=== PATIENT | male | born 1980 | race Caucasian/White ===

== ENCOUNTER 2021-09-26 08:06 | Emergency (ER) | payer SELFPAY ==
[~2021-09-26] VITALS: Ht 172.7 cm; Wt 68.0 kg
[2021-09-26 08:11] VITALS: BP 88/71
[2021-09-26 08:12] VITALS: BP 135/78
[2021-09-26 08:30] VITALS: BP 119/73
[2021-09-26 09:00] VITALS: BP 113/73
[2021-09-26 09:30] VITALS: BP 116/74
[2021-09-26 09:54] VITALS: BP 116/74
== END 2021-09-26 09:56 | disposition home or self-care (01) | DRG 556 ==
LOC: ED 08:06
DX: M25.512 Pain in left shoulder (principal)

== ENCOUNTER 2021-09-26 18:41 | Emergency (ER) | payer SELFPAY ==
[2021-09-26] VITALS (8 sets, daily range): BP systolic 110–124; BP diastolic 67–80
[~2021-09-26] VITALS: Ht 172.7 cm; Wt 75.0 kg
[2021-09-26 20:19] LABS: HEMATOCRIT 33.7 % (39.0-50.0); HEMOGLOBIN 11.3 g/dl (14.0-18.0); IMMATURE GRANULOCYTES 0.7 % (0.0-5.0); MEAN CELL VOLUME 94.7 fL CALC (80.0-100.0); MEAN CORPUSCULAR HGB 31.7 pG CALC (26.0-32.0); MEAN CORPUSCULAR HGB CONC 33.5 g/dL CAL (32.0-36.0); NEUT# 1.41 thou/uL (1.82-7.42); RED BLOOD COUNT 3.56 mill/uL (4.70-6.10)
[2021-09-26 20:46] LABS: MYOGLOBIN 33 ng/mL (0 - 121)
[2021-09-26 20:55] LABS: ALBUMIN 3.1 g/dL (3.2-5.0); ALKALINE PHOSPHATASE 62 u/l (38-126); ANION GAP 12 (6-22 (CALC)); BILIRUBIN, TOTAL 0.1 mg/dL (0.0-1.4); BUN 8 mg/dL (9-20); BUN/CREATININE RATIO 12 (12-20 (CALC)); CARBON DIOXIDE 27 mmol/l (22-30); CHLORIDE 105 mmol/l (95-108); CREATININE 0.7 mg/dL (0.7-1.3); GFR > 60 ML/MIN (>=60 (CALC)); GFR FOR AFR.AMER. > 60 ML/MIN (>=60 (CALC)); POTASSIUM 2.8 mmol/l (3.5-5.1); SGOT/AST 32 u/l (17-59); SODIUM 141 mmol/l (137-146); TOTAL PROTEIN 6.3 g/dL (6.3-8.2)
[2021-09-27] VITALS (18 sets, daily range): BP systolic 111–132; BP diastolic 70–86
[2021-09-27 00:25] LABS: URINE BILIRUBIN - DIPSTICK NEGATIVE (NEGATIVE); URINE BLOOD DIPSTICK NEGATIVE (NEGATIVE); URINE COLOR YELLOW; URINE GLUCOSE - DIPSTICK NEGATIVE (NEGATIVE); URINE KETONE NEGATIVE (NEGATIVE); URINE LEUK ESTERASE NEGATIVE (NEGATIVE); URINE PH 6.5 (4.5-8.0); URINE PROTEIN - DIPSTICK NEGATIVE (NEG-TRACE); URINE UROBILINOGEN - DIPSTICK 0.2 E.U./dL (0.2)
[2021-09-27 00:26] LABS: URINE NITRITE - DIPSTICK NEGATIVE (Negative)
[2021-09-27 01:45] LABS: MAGNESIUM 1.1 mg/dL (1.6-2.3)
[2021-09-27 01:50] LABS: POTASSIUM 4.1 mmol/l (3.5-5.1)
== END 2021-09-27 06:35 | disposition home or self-care (01) | DRG 641 ==
LOC: ED 18:41
PROVIDERS: Emergency Medicine
DX: E87.6 Hypokalemia (principal); E83.42 Hypomagnesemia; F17.200 Nicotine dependence, unspecified, uncomplicated; Z21 Asymptomatic human immunodeficiency virus [HIV] infection status; M25.512 Pain in left shoulder
CPT/HCPCS: J3475

== ENCOUNTER 2021-10-02 16:22 | Observation (INO) | payer SELFPAY ==
[~2021-10-02] VITALS: Ht 172.7 cm; Wt 59.0 kg
[2021-10-02] VITALS (18 sets, daily range): BP systolic 96–126; BP diastolic 60–86
[2021-10-02 16:57] LABS: HEMATOCRIT 33.1 % (39.0-50.0); HEMOGLOBIN 11.1 g/dl (14.0-18.0); MEAN CORPUSCULAR HGB 31.5 pG CALC (26.0-32.0); MEAN CORPUSCULAR HGB CONC 33.5 g/dL CAL (32.0-36.0); NEUT# 2.4 thou/uL (1.82-7.42); RED BLOOD COUNT 3.52 mill/uL (4.70-6.10); RED CELL DISTRI WIDTH 13.6 % (11.5-15.5)
[2021-10-02 17:18] LABS: ALKALINE PHOSPHATASE 69 u/l (38-126); BUN 14 mg/dL (9-20); BUN/CREATININE RATIO 16 (12-20 (CALC)); CARBON DIOXIDE 27 mmol/l (22-30); CHLORIDE 101 mmol/l (95-108); CREATININE 0.9 mg/dL (0.7-1.3); ETHYL ALCOHOL 0 mg/dl (0-30); GFR > 60 ML/MIN (>=60 (CALC)); GFR FOR AFR.AMER. > 60 ML/MIN (>=60 (CALC)); LIPASE 36 u/l (23-300); SODIUM 138 mmol/l (137-146)
[2021-10-02 17:19] LABS: ALBUMIN 4.1 g/dL (3.2-5.0); ANION GAP 13 (6-22 (CALC)); BILIRUBIN, TOTAL 0.6 mg/dL (0.0-1.4); POTASSIUM 2.5 mmol/l (3.5-5.1); SGOT/AST 59 u/l (17-59)
[2021-10-02 20:19] LABS: URINE BLOOD DIPSTICK NEGATIVE (NEGATIVE); URINE COLOR YELLOW; URINE GLUCOSE - DIPSTICK NEGATIVE (NEGATIVE); URINE KETONE TRACE mg/dL (NEGATIVE); URINE LEUK ESTERASE NEGATIVE (NEGATIVE); URINE PH 5.5 (4.5-8.0); URINE PROTEIN - DIPSTICK 30 mg/dL (NEG-TRACE); URINE SPECIFIC GRAVITY >=1.030
[2021-10-02 20:20] LABS: URINE BILIRUBIN - DIPSTICK SMALL (NEGATIVE); URINE NITRITE - DIPSTICK NEGATIVE (Negative)
[2021-10-02 20:31] LABS: URINE BACTERIA FEW hpf; URINE SQUAMOUS EPITHELIAL CELL FEW EPI/hpf (0-FEW)
[2021-10-03] VITALS: BP 123/51
[2021-10-03 04:35] VITALS: BP 127/66
[2021-10-03 05:37] LABS: BUN 14 mg/dL (9-20); BUN/CREATININE RATIO 20 (12-20 (CALC)); CARBON DIOXIDE 29 mmol/l (22-30); CHLORIDE 106 mmol/l (95-108); CREATININE 0.7 mg/dL (0.7-1.3); GFR > 60 ML/MIN (>=60 (CALC)); GFR FOR AFR.AMER. > 60 ML/MIN (>=60 (CALC)); SODIUM 139 mmol/l (137-146)
[2021-10-03 05:39] LABS: ANION GAP 8 (6-22 (CALC)); MAGNESIUM 1.6 mg/dL (1.6-2.3); POTASSIUM 3.6 mmol/l (3.5-5.1)
[2021-10-03 07:34] VITALS: BP 127/66
== END 2021-10-03 12:02 | disposition home or self-care (01) | DRG 641 ==
LOC: ED 16:22 → ED-I 16:42 → ED 16:42 → ED-I 18:17 → ED 18:20 → MS2 18:29 → ED 18:29 → MS2 18:35
PROVIDERS: Family Medicine; ADMIT Internal Medicine; ATTEND Internal Medicine
DX: E87.6 Hypokalemia (principal); F19.20 Other psychoactive substance dependence, uncomplicated; E83.42 Hypomagnesemia; R53.1 Weakness; Z21 Asymptomatic human immunodeficiency virus [HIV] infection status; Z59.00 Homelessness unspecified; Z20.822 Contact with and (suspected) exposure to COVID-19
CPT/HCPCS: G0378; J3475

== ENCOUNTER 2021-10-03 13:29 | Emergency (ER) | payer SELFPAY ==
[~2021-10-03] VITALS: Ht 172.7 cm; Wt 68.0 kg
[2021-10-03 13:42] VITALS: BP 108/73
[2021-10-03 14:30] LABS: HEMATOCRIT 31.9 % (39.0-50.0); HEMOGLOBIN 10.6 g/dl (14.0-18.0); IMMATURE GRANULOCYTES 0.2 % (0.0-5.0); MEAN CELL VOLUME 95.5 fL CALC (80.0-100.0); MEAN CORPUSCULAR HGB 31.7 pG CALC (26.0-32.0); MEAN CORPUSCULAR HGB CONC 33.2 g/dL CAL (32.0-36.0); NEUT# 2.51 thou/uL (1.82-7.42); RED BLOOD COUNT 3.34 mill/uL (4.70-6.10); RED CELL DISTRI WIDTH 13.8 % (11.5-15.5)
[2021-10-03 14:38] LABS: ALKALINE PHOSPHATASE 53 u/l (38-126); ANION GAP 7 (6-22 (CALC)); BUN 15 mg/dL (9-20); BUN/CREATININE RATIO 19 (12-20 (CALC)); CARBON DIOXIDE 30 mmol/l (22-30); CHLORIDE 104 mmol/l (95-108); CREATININE 0.8 mg/dL (0.7-1.3); ETHYL ALCOHOL 0 mg/dl (0-30); GFR > 60 ML/MIN (>=60 (CALC)); GFR FOR AFR.AMER. > 60 ML/MIN (>=60 (CALC)); POTASSIUM 3.6 mmol/l (3.5-5.1); SGOT/AST 40 u/l (17-59); SODIUM 138 mmol/l (137-146); TOTAL PROTEIN 6.5 g/dL (6.3-8.2)
[2021-10-03 14:39] LABS: ALBUMIN 3.1 g/dL (3.2-5.0); BILIRUBIN, TOTAL 0.3 mg/dL (0.0-1.4)
[2021-10-03 15:01] VITALS: BP 111/75
[2021-10-03 15:17] VITALS: BP 111/75
== END 2021-10-03 15:24 | disposition home or self-care (01) | DRG 101 ==
LOC: ED 13:29
PROVIDERS: Family Medicine
DX: R56.9 Unspecified convulsions (principal); Z21 Asymptomatic human immunodeficiency virus [HIV] infection status

== ENCOUNTER 2021-10-15 13:19 | Emergency (ER) | payer SELFPAY ==
[~2021-10-15] VITALS: Ht 172.7 cm; Wt 63.0 kg
[2021-10-15 13:27] VITALS: BP 121/81
[2021-10-15 13:30] VITALS: BP 118/83
[2021-10-15] MEDS ORDERED: KEFLEX500 MG PO (13:46)
[2021-10-15 13:54] VITALS: BP 121/81
[2021-10-15] MEDS ORDERED: NAPROXEN500 MG PO (16:22)
== END 2021-10-15 14:16 | disposition home or self-care (01) | DRG 605 ==
LOC: ED 13:19
DX: S51.802A Unspecified open wound of left forearm, initial encounter (principal); S51.801A Unspecified open wound of right forearm, initial encounter; L98.9 Disorder of the skin and subcutaneous tissue, unspecified; Z21 Asymptomatic human immunodeficiency virus [HIV] infection status; Z72.0 Tobacco use

== ENCOUNTER 2021-10-15 14:32 | Emergency (ER) | payer SELFPAY ==
[~2021-10-15] VITALS: Ht 172.7 cm; Wt 65.0 kg
[~2021-10-15 14:32] MED LIST: KEFLEX500 MG PO
[2021-10-15] MEDS ORDERED: NAPROXEN500 MG PO (16:22)
[2021-10-15 16:27] VITALS: BP 134/92
== END 2021-10-15 16:34 | disposition home or self-care (01) | DRG 605 ==
LOC: ED 14:32
DX: S51.802A Unspecified open wound of left forearm, initial encounter (principal); S51.801A Unspecified open wound of right forearm, initial encounter

== ENCOUNTER 2021-10-15 19:05 | Emergency (ER) | payer SELFPAY ==
[2021-10-15] VITALS (8 sets, daily range): BP systolic 118–139; BP diastolic 73–96
[~2021-10-15] VITALS: Ht 172.7 cm; Wt 63.6 kg
[~2021-10-15 19:05] MED LIST changes: +NAPROXEN500 MG PO
[2021-10-15 19:49] LABS: HEMATOCRIT 36.1 % (39.0-50.0); HEMOGLOBIN 11.9 g/dl (14.0-18.0); IMMATURE GRANULOCYTES 0.2 % (0.0-5.0); MEAN CELL VOLUME 95.3 fL CALC (80.0-100.0); MEAN CORPUSCULAR HGB 31.4 pG CALC (26.0-32.0); NEUT# 2.63 thou/uL (1.82-7.42); RED BLOOD COUNT 3.79 mill/uL (4.70-6.10); RED CELL DISTRI WIDTH 13.2 % (11.5-15.5)
[2021-10-15 19:58] LABS: ALBUMIN 3.3 g/dL (3.2-5.0); ALKALINE PHOSPHATASE 68 u/l (38-126); ANION GAP 10 (6-22 (CALC)); BILIRUBIN, TOTAL 0.2 mg/dL (0.0-1.4); BUN 9 mg/dL (9-20); BUN/CREATININE RATIO 15 (12-20 (CALC)); CARBON DIOXIDE 29 mmol/l (22-30); CHLORIDE 103 mmol/l (95-108); CREATININE 0.6 mg/dL (0.7-1.3); ETHYL ALCOHOL 0 mg/dl (0-30); GFR > 60 ML/MIN (>=60 (CALC)); GFR FOR AFR.AMER. > 60 ML/MIN (>=60 (CALC)); MAGNESIUM 1.5 mg/dL (1.6-2.3); POTASSIUM 3.7 mmol/l (3.5-5.1); SGOT/AST 33 u/l (17-59); SODIUM 138 mmol/l (137-146); TOTAL PROTEIN 6.9 g/dL (6.3-8.2)
[2021-10-15 21:06] LABS: URINE BILIRUBIN - DIPSTICK NEGATIVE (NEGATIVE); URINE BLOOD DIPSTICK TRACE-INTACT (NEGATIVE); URINE COLOR YELLOW; URINE GLUCOSE - DIPSTICK NEGATIVE (NEGATIVE); URINE KETONE NEGATIVE (NEGATIVE); URINE LEUK ESTERASE NEGATIVE (NEGATIVE); URINE NITRITE - DIPSTICK NEGATIVE (Negative); URINE PH 6.5 (4.5-8.0); URINE PROTEIN - DIPSTICK NEGATIVE (NEG-TRACE); URINE UROBILINOGEN - DIPSTICK 0.2 E.U./dL (0.2)
== END 2021-10-15 23:01 | disposition designated cancer center or children's hospital (05) | DRG 880 ==
LOC: ED 19:05
PROVIDERS: Family Medicine
DX: R45.851 Suicidal ideations (principal); F32.A Depression, unspecified; Z21 Asymptomatic human immunodeficiency virus [HIV] infection status; F15.10 Other stimulant abuse, uncomplicated